=== PATIENT | male | born 1935 | race Caucasian/White ===

== ENCOUNTER 2017-02-17 22:20 | Outpatient (CLI) | payer MEDICARE, OTHER | END 2017-02-17 22:21 | disposition short-term general hospital (02) | LOC: EMS 22:20 | PROVIDERS: ATTEND Surgery | DX: R07.89 Other chest pain (principal) | CPT/HCPCS: A0425; A0427 ==

== ENCOUNTER 2017-04-01 14:14 | Outpatient (CLI) | payer MEDICARE, OTHER | END 2017-04-01 14:15 | disposition short-term general hospital (02) | LOC: EMS 14:14 | PROVIDERS: ATTEND Surgery | DX: R10.10 Upper abdominal pain, unspecified (principal); R42 Dizziness and giddiness | CPT/HCPCS: A0425; A0427 ==